=== PATIENT | female | born 1950 | race Two or more races ===

== ENCOUNTER → 2024-05-25 | Outpatient (CLI) | payer MEDICARE, MEDICAID, SELFPAY ==
[2024-05-25 10:45] LABS: Basophils # (Auto) 0.1 Thou/mm3 (0.0-0.2); Basophils % (Auto) 1 % (0-2.5); Eosinophils # (Auto) 0.2 Thou/mm3 (0.0-0.5); Eosinophils % (Auto) 3 % (0-10); Hematocrit 41.9 % (36.0-46.0); Immature Granulocytes % (Auto) 1 % (0-0); Immature Granulocytes Auto 0.04 Thou/mm3 (0.00-0.00); Lymphocytes # (Auto) 2.2 Thou/mm3 (1.0-4.8); Lymphocytes % (Auto) 31 % (10-50); Mean Corpuscular HGB Conc 33.4 g/dl (31.0-37.0); Mean Corpuscular Hemoglobin 29.8 pg (25.0-35.0); Mean Corpuscular Volume 89 fL (80-100); Monocytes # (Auto) 0.6 Thou/mm3 (0.0-0.8); Monocytes % (Auto) 8 % (0-12); Neutrophils # (Auto) 4.1 Thou/mm3 (1.8-7.7); Neutrophils % (Auto) 57 % (37-80); Nucleated Red Blood Cell % 0 /100 WBC (0); Platelet Count 218 Thou/mm3 (140-440); RDW Standard Deviation 41.9 fL (36.4-46.3); White Blood Count 7.3 Thou/mm3 (3.6-11.0)
[2024-05-25 11:11] LABS: Alanine Aminotransferase 16 U/L (10-49); Albumin, Serum 4.4 gm/dL (3.4-4.8); Albumin/Globulin Ratio 1.6 (1.2-2.2); Alkaline Phosphatase 63 U/L (46-116); Anion Gap 8 (7-16); Aspartate Amino Transferase 15 U/L (0-34); BUN/Creatinine Ratio 20 Ratio (12-20); Bilirubin,Total 0.4 mg/dL (0.3-1.2); Blood Urea Nitrogen 16 mg/dL (9-23); Calcium 9.3 mg/dL (8.3-10.6); Calcium (Corrected) 9.3 mg/dL (8.5-10.1); Carbon Dioxide 25.4 mMol/L (20.0-31.0); Chloride 108 mMol/L (98-107); Creatinine (Component) 0.8 mg/dL (0.6-1.3); Globulin 2.8 gm/dL (2.3-3.5); Glucose 104 mg/dL (74-106); Osmolality,Calculated 282 (275-295); Potassium 3.8 mMol/L (3.4-5.1); Sodium 141 mMol/L (136-145); Total Protein 7.2 gm/dL (5.7-8.2); eGFR > 60 See Note
== END | disposition home or self-care (01) ==
PROVIDERS: PCP Family Medicine; Referring Provider Internal Medicine Hematology & Oncology; Visit Provider Internal Medicine Hematology & Oncology
DX: C50.311 Malignant neoplasm of lower-inner quadrant of right female breast (principal)
CPT/HCPCS: 36415; 80053; 85025

== ENCOUNTER 2024-06-01 13:51 | Outpatient (RCR) | payer MEDICARE, MEDICAID, SELFPAY ==
--- NOTE | 2024-06-04 19:56 | CTCFLWUP_ITS ---
Patient: CECILIO SRINIVASAN : 1950 Page 2 of 3 FOLLOW UP NOTE DATE OF [id number]/01/2024 NAME: CECILIO SRINIVASAN ACCOUNT: [id number] : 1950 AGE: 73 DIAGNOSIS: Stage IIa (PT 2, N0 SN), intermediate grade, ER positive, MA positive, HER-2/sophie negative invasive ductal carcinoma of the right breast (10/07/2018). Oncotype DX recurrence score 17 (low risk group) Anastrozole started on 02/10/2019. Anastrozole discontinued on 01/07/2021 due to osteoporosis. Linda evans is started on tamoxifen. Osteoporosis on bone density test (01/07/2021) She is also started on Prolia (01/20/2021) REASON FOR TODAY?S VISIT: This is office follow-up visit. Ms. Srinivasan is here at [facility]. She is clinically doing very well. Currently she is on tamoxifen. Toleratin g it very well without any significant side effects. She denies any cough, chest pain, abdominal kelly n or leg cramps. She is also taking Citracal 1 tablet p.o. twice daily. Her last bone density test was done on 01/07/2021. Ms. Srinivasan is currently on Prolia also. HISTORY OF PRESENT ILLNESS: Cecilio Srinivasan is a 73-year-old SPA speaking female with followin g oncology history. 06/28/2018: Patient had right breast unilateral ultrasound for complaint of palpable right breast mas s. Ultrasound showed a 3 x 2.6 cm nodule at 12 o'clock position and the second 2.5 x 2.3 cm nodule a t the 5 o'clock position. 06/28/2018: Patient had bilateral diagnostic digital mammograms which confirmed a 3.3 cm oval mass in the retroareolar right breast with indistinct margins. 06/28/2018: Bone density test was done which showed normal mineralization based on the lumbar spine m easurements and osteopenia based on hip measurements. 07/27/2018: Patient had a right breast ultrasound-guided biopsy. Pathology showed ER positive, MA nega tive, HER-2/sophie negative intermediate grade invasive ductal carcinoma. 10/07/2018: Patient had right breast partial mastectomy and sentinel lymph node biopsy. Surgical path ology specimen showed single focus intermediate grade ER positive MA positive and HER-2/sophie negative invasive ductal carcinoma. Deep additional surgical margin was positive for lymphovascular invasion. Surgical margins are negative on mastectomy specimen. One sentinel lymph node was negative for mal ignancy. Oncotype DX recurrence score result is 17 placing Ms. Srinivasan in low risk group. 11/01/2018?02/09/2019: Patient received 6600 cGy radiation to the right breast. 02/10/2019: Patient started anastrozole. 07/25/2019: CT scan of the chest abdomen pelvis with contrast?negative for metastatic disease. 01/07/2021: Bone density test 01/07/2021: Anastrozole discontinued and patient is started on tamoxifen and Prolia and Citracal. 05/30/2021: Ultrasound-guided biopsy of the right breast lesion. PAST MEDICAL HISTORY: Hypertension. Anxiety. PAST MEDICAL HISTORY: Hypertension. Anxiety. PAST SURGICAL HISTORY: MEDICATIONS: 1. Citracal plus D - 315 mg-5 mcg (200 unit) 1 tab Twice a Day 2. clonazepam - 1 mg As directed 3. FLUoxetine - 10 mg 1 tab As directed 4. losartan - 100 mg 1 tab Daily 5. tamoxifen - 20 mg 1 tab Daily 6. tamoxifen - 20 mg 1 tab one tab po q daily Medications Last Reconciled by Jodi Mauro MA on 12/02/2023 ALLERGIES: PENICILLAMINE REVIEW OF SYSTEMS: Neurological: No headache, seizures or blurring of vision. Gastrointestinal: No nausea, vomiting, diarrhea or constipation. Cardiovascular: No palpitations or angina pains. Respiratory: No cough, chest pain or shortness of breath. PHYSICAL EXAMINATION: VITAL SIGNS: This is a telemedicine visit. Patient is not examined. LABORATORY DATA: Date Time ASSESSMENT: 1.Stage IIa, intermediate grade, ER positive, MA positive, HER-2/sophie negative invasive ductal carcino ma of the right breast (10/07/2018). Lymphovascular invasion present. Status post right breast parti al mastectomy and sentinel lymph node biopsy. Status post radiation therapy to the right breast. Oncotype DX recurrence score is 17 placing Ms. Srinivasan in low risk group. Absolute chemotherapy cedric efit is less than 1%. Her distant recurrence risk at 9 years with either aromatase inhibitors or anderson oxifen is around 5%. The patient is clinically doing well without any complaints.. She is currently on tamoxifen and tolerating it very well without any side effects. Osteoporosis (01/07/2021) on Prolia and Citracal 1 tablet p.o. daily Anastrozole discontinued on 01/07/2021 due to osteoporosis and Ms. Srinivasan was started on tamoxifen. 2High blood pressure- follow with pcp 3Anxiety follow with pcp PLAN: Mammogram nika Continue tamoxifen. New prescription sent to the pharmacy Continue Prolia as per the treatment plan Citracal to 1 tablet p.o. twice daily. Last mammogram normal as per patient Rtc in 3- 6 months as per patient preference . Electronically Signed by: {Object.Sanct_ID*PnP.NameFL@M}, {Object.Sanct_ID*PnP.Suffix@U} D: {Object.Sanct_Date} T: {Object.Sanct_Time} CC: Olivia?Vanessa,? PCP: Jose Harley Referring: Jose Harley This document was completed utilizing speech recognition software. Grammatical errors, random word in sertions, pronoun errors, and incomplete sentences are an occasional consequence of this system due t o software limitations, ambient noise, and hardware issues. Any formal questions or concerns about th e content, text or information contained within the body of this dictation should be directly address ed to the provider for clarification.
== END 2024-06-17 23:59 | disposition home or self-care (01) ==
LOC: SCTC 13:51
PROVIDERS: PCP Family Medicine; Referring Provider Family Medicine; Visit Provider Internal Medicine Hematology & Oncology
DX: C50.311 Malignant neoplasm of lower-inner quadrant of right female breast (principal); Z17.0 Estrogen receptor positive status [ER+]; Z17.21 Progesterone receptor positive status; Z17.32 Human epidermal growth factor receptor 2 negative status; Z79.810 Long term (current) use of selective estrogen receptor modulators (SERMs); M81.0 Age-related osteoporosis without current pathological fracture; Z90.11 Acquired absence of right breast and nipple
CPT/HCPCS: 99213; G0463

== ENCOUNTER → 2024-07-07 | Outpatient (CLI) | payer MEDICARE, MEDICAID, SELFPAY ==
--- NOTE | 2024-07-07 11:45 | XR_ITS ---
Examination: Screening digital mammography, bilateral Computer aided detection 3-D breast Tomosynthesis, bilateral Date and time of exam: July 07, 2024 1201 hours Compared to mammograms dating to June 28, 2008 Indication: Screening Technique: Nonmagnified MLO, CC views of the breasts to been obtained, reconstructed from 3-D Tomosynthesis images. R2 computer aided detection program utilized for evaluation of suspicious masses and/or abnormal calcifications. 3-D Tomosynthesis images obtained. Findings: The breasts are heterogeneously dense, which may obscure small masses Mass in the inner right breast with breast biopsy marker again noted This mass biopsy May 30, 2021 No additional masses Benign calcifications IMPRESSION: BI-RADS Category 0: Incomplete: Need additional imaging evaluation Recommend repeat right breast sonography to document stability of the 1:00 nodule right breast compared to the right breast sonogram July 16, 2021
== END | disposition home or self-care (01) ==
LOC: CDIM 11:42
PROVIDERS: Referring Provider Internal Medicine Hematology & Oncology; Visit Provider Internal Medicine Hematology & Oncology
DX: Z12.31 Encounter for screening mammogram for malignant neoplasm of breast (principal); C50.311 Malignant neoplasm of lower-inner quadrant of right female breast; N63.12 Unspecified lump in the right breast, upper inner quadrant; R92.8 Other abnormal and inconclusive findings on diagnostic imaging of breast
CPT/HCPCS: 77063; 77067

== ENCOUNTER → 2024-07-24 | Outpatient (CLI) | payer MEDICARE, MEDICAID, SELFPAY ==
--- NOTE | 2024-07-24 13:40 | XR_ITS ---
Examination: Bone densitometry Date and time of exam:July 24, 2024 1352 hours INDICATIONS: Menopause age 57, personal history osteopenia Technique: Lumbar spine and hip total bone mineralization values of an calculated. Peak reference and age match control results have been displayed. Findings: Lumbar spine total bone mineralization is1.126 gm/cm2. This is 0.7 standard deviations above peak reference. This is 2.9 standard deviations above age-matched controls. Hip total bone mineralization is 0.844 gm/cm2 This is 0.9 standard deviations below peak reference. This is 0.7 standard deviations above age-matched controls Impression: There is normal mineralization based on lumbar spine measurements. There is osteoporosis based on hip measurements Lumbar mineralization is increase 14.8% compared with January 07, 2021 Hip mineralization is increase 11.0% compared with January 07, 2021
[2024-07-24 14:29] LABS: Basophils # (Auto) 0.1 Thou/mm3 (0.0-0.2); Basophils % (Auto) 1 % (0-2.5); Eosinophils # (Auto) 0.2 Thou/mm3 (0.0-0.5); Eosinophils % (Auto) 4 % (0-10); Hematocrit 43.4 % (36.0-46.0); Hemoglobin 14.4 g/dL (12.0-16.0); Immature Granulocytes % (Auto) 0 % (0-0); Immature Granulocytes Auto 0.02 Thou/mm3 (0.00-0.00); Lymphocytes # (Auto) 1.8 Thou/mm3 (1.0-4.8); Lymphocytes % (Auto) 26 % (10-50); Mean Corpuscular HGB Conc 33.2 g/dl (31.0-37.0); Mean Corpuscular Hemoglobin 29.5 pg (25.0-35.0); Mean Corpuscular Volume 89 fL (80-100); Monocytes # (Auto) 0.5 Thou/mm3 (0.0-0.8); Monocytes % (Auto) 7 % (0-12); Neutrophils # (Auto) 4.3 Thou/mm3 (1.8-7.7); Neutrophils % (Auto) 63 % (37-80); Nucleated Red Blood Cell % 0 /100 WBC (0); Platelet Count 200 Thou/mm3 (140-440); RDW Standard Deviation 39.9 fL (36.4-46.3); Red Blood Count 4.88 Miln/mm3 (4.00-5.20); White Blood Count 6.9 Thou/mm3 (3.6-11.0)
[2024-07-24 15:11] LABS: Alanine Aminotransferase 10 U/L (10-49); Albumin, Serum 4.5 gm/dL (3.4-4.8); Albumin/Globulin Ratio 1.6 (1.2-2.2); Alkaline Phosphatase 55 U/L (46-116); Anion Gap 12 (7-16); Aspartate Amino Transferase 14 U/L (0-34); BUN/Creatinine Ratio 15 Ratio (12-20); Bilirubin,Total 0.6 mg/dL (0.3-1.2); Blood Urea Nitrogen 12 mg/dL (9-23); Calcium 9.1 mg/dL (8.3-10.6); Calcium (Corrected) 9.1 mg/dL (8.5-10.1); Chloride 106 mMol/L (98-107); Creatinine (Component) 0.8 mg/dL (0.6-1.3); Globulin 2.8 gm/dL (2.3-3.5); Glucose 95 mg/dL (74-106); Osmolality,Calculated 282 (275-295); Potassium 3.9 mMol/L (3.4-5.1); Sodium 142 mMol/L (136-145); Total Protein 7.3 gm/dL (5.7-8.2); eGFR > 60 See Note
[2024-07-25 17:42] LABS: CA 15-3 7.6 U/mL (<32.4)
== END | disposition home or self-care (01) ==
LOC: CDIM 13:41 → COPL 13:53
PROVIDERS: PCP Family Medicine; Referring Provider Internal Medicine Hematology & Oncology; Visit Provider Radiology Diagnostic Radiology
DX: M81.8 Other osteoporosis without current pathological fracture (principal); C50.311 Malignant neoplasm of lower-inner quadrant of right female breast
CPT/HCPCS: 36415; 77080; 80053; 85025; 86300

== ENCOUNTER → 2024-08-01 | Outpatient (CLI) | payer MEDICARE, MEDICAID, SELFPAY ==
--- NOTE | 2024-08-01 11:30 | XR_ITS ---
Examination: Breast ultrasound, unilateral, right complete Date and time of exam: August 01, 2026 1123 hours INDICATIONS: Right breast sonogram May 16, 2021 1:00 nodule 3.3 x 1.2 x 2.7 cm indistinct margins, biopsy May 30, 2021 negative for malignancy Technique: Real-time teague scale ultrasonographic imaging performed right breast including all 4 quadrants as well as nipple retroareolar and axillary region. Findings: 1:00 oval mass circumscribed 3.0 x 1.2 x 2.6 cm IMPRESSION: BI-RADS Category 3: Probably benign findings One additional 6 month right breast sonogram follow-up is needed to document stability of nodule described above
== END | disposition home or self-care (01) ==
PROVIDERS: PCP Family Medicine; Referring Provider Internal Medicine Hematology & Oncology; Visit Provider Internal Medicine Hematology & Oncology
DX: N63.12 Unspecified lump in the right breast, upper inner quadrant (principal); C50.311 Malignant neoplasm of lower-inner quadrant of right female breast
CPT/HCPCS: 76641

== ENCOUNTER → 2024-09-22 | Outpatient (CLI) | payer MEDICARE, MEDICAID, SELFPAY ==
[2024-09-22 15:05] LABS: Anion Gap 10 (7-16); BUN/Creatinine Ratio 21 Ratio (12-20); Blood Urea Nitrogen 17 mg/dL (9-23); Calcium 9.2 mg/dL (8.3-10.6); Carbon Dioxide 24.8 mMol/L (20.0-31.0); Chloride 108 mMol/L (98-107); Creatinine (Component) 0.8 mg/dL (0.6-1.3); Glucose 140 mg/dL (74-106); Osmolality,Calculated 288 (275-295); Potassium 3.9 mMol/L (3.4-5.1); Sodium 143 mMol/L (136-145); eGFR > 60 See Note
== END | disposition home or self-care (01) ==
LOC: SCTO 13:46
PROVIDERS: PCP Family Medicine; Referring Provider Internal Medicine Hematology & Oncology; Visit Provider Internal Medicine Hematology & Oncology
DX: C50.311 Malignant neoplasm of lower-inner quadrant of right female breast (principal)
CPT/HCPCS: 36415; 80048

== ENCOUNTER → 2024-10-16 | Outpatient (CLI) | payer MEDICARE, MEDICAID, SELFPAY ==
[2024-10-16 14:02] LABS: Basophils # (Auto) 0.1 Thou/mm3 (0.0-0.2); Basophils % (Auto) 1 % (0-2.5); Eosinophils # (Auto) 0.2 Thou/mm3 (0.0-0.5); Eosinophils % (Auto) 2 % (0-10); Hemoglobin 13.7 g/dL (12.0-16.0); Immature Granulocytes % (Auto) 0 % (0-0); Immature Granulocytes Auto 0.02 Thou/mm3 (0.00-0.00); Lymphocytes % (Auto) 27 % (10-50); Mean Corpuscular HGB Conc 32.6 g/dl (31.0-37.0); Mean Corpuscular Hemoglobin 29.3 pg (25.0-35.0); Mean Corpuscular Volume 90 fL (80-100); Monocytes # (Auto) 0.4 Thou/mm3 (0.0-0.8); Monocytes % (Auto) 6 % (0-12); Neutrophils # (Auto) 4.7 Thou/mm3 (1.8-7.7); Neutrophils % (Auto) 64 % (37-80); Nucleated Red Blood Cell % 0 /100 WBC (0); Platelet Count 191 Thou/mm3 (140-440); RDW Standard Deviation 40.8 fL (36.4-46.3); Red Blood Count 4.67 Miln/mm3 (4.00-5.20); White Blood Count 7.4 Thou/mm3 (3.6-11.0)
[2024-10-16 14:25] LABS: Alanine Aminotransferase 15 U/L (10-49); Albumin, Serum 4.1 gm/dL (3.4-4.8); Albumin/Globulin Ratio 1.5 (1.2-2.2); Alkaline Phosphatase 69 U/L (46-116); Anion Gap 13 (7-16); Aspartate Amino Transferase 23 U/L (0-34); BUN/Creatinine Ratio 27 Ratio (12-20); Bilirubin,Total 0.8 mg/dL (0.3-1.2); Blood Urea Nitrogen 19 mg/dL (9-23); Calcium 10.2 mg/dL (8.3-10.6); Calcium (Corrected) 10.2 mg/dL (8.5-10.1); Carbon Dioxide 23.4 mMol/L (20.0-31.0); Chloride 107 mMol/L (98-107); Creatinine (Component) 0.7 mg/dL (0.6-1.3); Globulin 2.8 gm/dL (2.3-3.5); Glucose 89 mg/dL (74-106); Osmolality,Calculated 286 (275-295); Potassium 4.1 mMol/L (3.4-5.1); Sodium 143 mMol/L (136-145); Total Protein 6.9 gm/dL (5.7-8.2); eGFR > 60 See Note
[2024-10-16 14:40] LABS: CA 15-3 5.9 U/mL (<32.4)
== END | disposition home or self-care (01) ==
LOC: SCTO 13:28
PROVIDERS: PCP Family Medicine; Referring Provider Internal Medicine Hematology & Oncology; Visit Provider Internal Medicine Hematology & Oncology
DX: C50.311 Malignant neoplasm of lower-inner quadrant of right female breast (principal)
CPT/HCPCS: 36415; 80053; 85025; 86300

== ENCOUNTER 2024-10-19 13:16 | Outpatient (RCR) | payer MEDICARE, MEDICAID, SELFPAY ==
--- NOTE | 2024-11-06 19:56 | CTCFLWUP_ITS ---
Patient: CECILIO SANCHEZ : 1950 Page 2 of 5 FOLLOW UP NOTE DATE OF SERVICE: 10/18/2024 NAME: CECILIO SANCHEZ ACCOUNT: [id number] : 1950 AGE: 74 INTERVAL HISTORY: No new complains ONCOLOGY HISTORY: DIAGNOSIS: Stage IIa (PT 2, N0 SN), intermediate grade, ER positive, CT positive, HER-2/sophie negative invasive ductal carcinoma of the right breast (10/07/2018). Oncotype DX recurrence score 17 (low risk group) Anastrozole started on 02/10/2019. Anastrozole discontinued on 01/07/2021 due to osteoporosis. Patient is started on tamoxifen. Osteoporosis on bone density test (01/07/2021) She is also started on Prolia (01/20/2021) REASON FOR TODAY?S VISIT: This is office follow-up visit. Ms. Sanchez is here at [facility]. She is clinically doing very well. Currently she is on tamoxifen. Tolerating it very well without any significant side effects. She denies any cough, chest pain, abdominal pain or leg cramps. She is also taking Citracal 1 tablet p.o. twice daily. Her last bone density test was done on 01/07/2021. Ms. Sanchez is currently on Prolia also. Malignant neoplasm of lower-inner quadrant of right female breast [ICD10] C50.311 DATE OF DIAGNOSIS: STAGE/TNM: TREATMENT HISTORY: Care?Plan Start?Date Cycle Day Intent DOCEtaxel?75,?Cyclophosphamide?600 11/17/2018 1 21 Curative?(adjuvant) PROLia?60mg?every?6?months 01/30/2021 1 180 Palliative HISTORY OF PRESENT ILLNESS: Cecilio Sanchez is a 74-year-old SPA speaking female with following oncology history. 06/28/2018: Patient had right breast unilateral ultrasound for complaint of palpable right breast mass. Ultrasound showed a 3 x 2.6 cm nodule at 12 o'clock position and the second 2.5 x 2.3 cm nodule at the 5 o'clock position. 06/28/2018: Patient had bilateral diagnostic digital mammograms which confirmed a 3.3 cm oval mass in the retroareolar right breast with indistinct margins. 06/28/2018: Bone density test was done which showed normal mineralization based on the lumbar spine measurements and osteopenia based on hip measurements. 07/27/2018: Patient had a right breast ultrasound-guided biopsy. Pathology showed ER positive, CT negative, HER-2/sophie negative intermediate grade invasive ductal carcinoma. 10/07/2018: Patient had right breast partial mastectomy and sentinel lymph node biopsy. Surgical pathology specimen showed single focus intermediate grade ER positive CT positive and HER-2/sophie negative invasive ductal carcinoma. Deep additional surgical margin was positive for lymphovascular invasion. Surgical margins are negative on mastectomy specimen. One sentinel lymph node was negative for malignancy. Oncotype DX recurrence score result is 17 placing Ms. Sanchez in low risk group. 11/01/2018?02/09/2019: Patient received 6600 cGy radiation to the right breast. 02/10/2019: Patient started anastrozole. 07/25/2019: CT scan of the chest abdomen pelvis with contrast?negative for metastatic disease. 01/07/2021: Bone density test 01/07/2021: Anastrozole discontinued and patient is started on tamoxifen and Prolia and Citracal. 05/30/2021: Ultrasound-guided biopsy of the right breast lesion. PAST MEDICAL HISTORY: Hypertension. Anxiety. OTHER MEDICAL HISTORY/CONDITIONS: FAMILY HISTORY: SOCIAL HISTORY: DIAL MOUNTER HISTORY: MEDICATIONS: 1. Citracal plus D - 315 mg-5 mcg (200 unit) 1 tab Twice a Day 2. clonazepam - 1 mg As directed 3. FLUoxetine - 10 mg 1 tab As directed 4. losartan - 100 mg 1 tab Daily 5. tamoxifen - 20 mg 1 tab one tab po q daily Medications Last Reconciled by Cecilio Myers MD on 10/18/2024 ALLERGIES: PENICILLAMINE REVIEW OF SYSTEMS: A complete 14-point review of systems was performed and is negative except as noted in interval history. PHYSICAL EXAMINATION: VITAL SIGNS: Temperature?98.6, B/P?168/76, Oxygen?Saturation?97% Weight?156.4?lbs PAIN: 3 - Between mild and moderate pain ECOG Performance Status: None This is a telemedicine visit. Patient is not examined. LABORATORY DATA: I have personally reviewed and interpreted each of the patient?s relevant lab tests, abnormal findings are below: Date 1/6/25 3/7/25 3/31/25 ??WHITE?BLOOD?COUNT?(Thou/mm3) ? ? 7.4 ??RED?BLOOD?COUNT?(Miln/mm3) ? ? 4.67 ??HEMOGLOBIN?(gm/dl) ? ? 13.7 ??HEMATOCRIT?(%) ? ? 42.0 ??PLATELET?COUNT?(Thou/mm3) ? ? 191 ??NEUTROPHILS?%,?AUTO?(%) ? ? 64 ??LYMPH?%,?AUTO?(%) ? ? 27 ??NEUTROPHILS,?AUTO?(Thou/mm3) ? ? 4.7 ??GLUCOSE,RANDOM?(mg/dL) 95 140?H 89 ??BLOOD?UREA?NITROGEN?(mg/dL) 12 17 19 ??CREATININE?(mg/dL) 0.80 0.80 0.70 ??SODIUM?(mmol/L) 142 143 143 ??POTASSIUM?(mmol/L) 3.9 3.9 4.1 ??CHLORIDE?(mmol/L) 106 108?H 107 ??CrCl?(CandG)?(ml/min) 60.86 59.98 68.55 ??AST/SGOT?(Unit/L) 14 ? 23 ??ALT/SGPT?(Unit/L) 10 ? 15 ??ALKALINE?PHOSPHATASE?(Unit/L) 55 ? 69 ??BILIRUBIN,?TOTAL?(mg/dL) 0.6 ? 0.8 ??PROTEIN?TOTAL?(gm/dl) 7.3 ? 6.9 ??ALBUMIN,?SERUM?(gm/dl) 4.5 ? 4.1 ??GLOBULIN?(gm/dl) 2.8 ? 2.8 ??ALBUMIN/GLOBULIN?RATIO 1.6 ? 1.5 ??CALCIUM,?SERUM?(mg/dL) 9.1 9.2 10.2 ??CALCIUM?SERUM?(CORRECTED)?(mg/dL) 9.1 ? 10.2?H ASSESSMENT/PLAN: 1.Stage IIa, intermediate grade, ER positive, CT positive, HER-2/sophie negative invasive ductal carcinoma of the right breast (10/07/2018). Lymphovascular invasion present. Status post right breast partial mastectomy and sentinel lymph node biopsy. Status post radiation therapy to the right breast. Oncotype DX recurrence score is 17 placing Ms. Sanchez in low risk group. Absolute chemotherapy benefit is less than 1%. Her distant recurrence risk at 9 years with either aromatase inhibitors or tamoxifen is around 5%. The patient is clinically doing well without any complaints.. She is currently on tamoxifen and tolerating it very well without any side effects. Osteoporosis (01/07/2021) on Prolia and Citracal 1 tablet p.o. daily Anastrozole discontinued on 01/07/2021 due to osteoporosis and Ms. Sanchez was started on tamoxifen. 2High blood pressure- follow with pcp 3Anxiety follow with pcp Mammogram nika Continue tamoxifen. New prescription sent to the pharmacy Continue Prolia as per the treatment plan Citracal to 1 tablet p.o. twice daily. Last mammogram normal as per patient Rtc in 3- 6 months as per patient preference . ORDERS: Order # Description [id number] Right + Breast Ultrasound [id number] Comprehensive Metabolic Panel - 12 + CBC with Auto Diff + CA 15-3 + CEA + MD Follow Up 6 Month [id number] MD Follow Up 4 Month [id number] Basic Metabolic Panel [id number] Basic Metabolic Panel [id number] Basic Metabolic Panel [id number] Basic Metabolic Panel [id number] Basic Metabolic Panel [id number] Basic Metabolic Panel [id number] Basic Metabolic Panel [id number] Basic Metabolic Panel [id number] Basic Metabolic Panel [id number] Basic Metabolic Panel [id number] Basic Metabolic Panel [id number] Basic Metabolic Panel [id number] Basic Metabolic Panel [id number] Basic Metabolic Panel RETURN TO CLINIC: BILLING AND COMPLIANCE: I reviewed external records from providers outside my specialty as summarized above. I spent a total of 50 minutes on this patient?s care on the day of their visit excluding time spent related to any billed procedures. This time includes time spent with the patient as well as time spent documenting in the medical record, reviewing patients records and tests, obtaining history, placing orders, communicating with other healthcare professionals, counseling the patient, family or caregiver, and/or care coordination for the diagnoses above. Electronically Signed by: {Object.Sanct_ID*PnP.NameFL@M}, {Object.Sanct_ID*PnP.Suffix@U} D: {Object.Sanct_Date} T: {Object.Sanct_Time} CC: Olivia?Vanessa? PCP: Ayleen Mata Referring: Ayleen Mata This document was completed utilizing speech recognition software. Grammatical errors, random word insertions, pronoun errors, and incomplete sentences are an occasional consequence of this system due to software limitations, ambient noise, and hardware issues. Any formal questions or concerns about the content, text or information contained within the body of this dictation should be directly addressed to the provider for clarification.
== END 2024-11-15 23:59 | disposition home or self-care (01) ==
LOC: SCTC 13:16
PROVIDERS: PCP Family Medicine; Referring Provider Family Medicine; Visit Provider Internal Medicine Hematology & Oncology
DX: C50.311 Malignant neoplasm of lower-inner quadrant of right female breast (principal); M81.0 Age-related osteoporosis without current pathological fracture; Z17.0 Estrogen receptor positive status [ER+]; Z17.21 Progesterone receptor positive status; Z17.32 Human epidermal growth factor receptor 2 negative status; Z79.810 Long term (current) use of selective estrogen receptor modulators (SERMs); Z90.11 Acquired absence of right breast and nipple
CPT/HCPCS: 96372; 99212; J0897; G0463

== ENCOUNTER → 2025-02-12 | Outpatient (CLI) | payer MEDICARE, MEDICAID, SELFPAY ==
[2025-02-12 13:46] LABS: Basophils # (Auto) 0.1 Thou/mm3 (0.0-0.2); Basophils % (Auto) 1 % (0-2.5); Eosinophils # (Auto) 0.2 Thou/mm3 (0.0-0.5); Eosinophils % (Auto) 3 % (0-10); Hematocrit 43.4 % (36.0-46.0); Hemoglobin 14.1 g/dL (12.0-16.0); Immature Granulocytes Auto 0.03 Thou/mm3 (0.00-0.00); Lymphocytes # (Auto) 1.8 Thou/mm3 (1.0-4.8); Lymphocytes % (Auto) 25 % (10-50); Mean Corpuscular HGB Conc 32.5 g/dl (31.0-37.0); Mean Corpuscular Hemoglobin 29.1 pg (25.0-35.0); Mean Corpuscular Volume 90 fL (80-100); Monocytes # (Auto) 0.5 Thou/mm3 (0.0-0.8); Monocytes % (Auto) 7 % (0-12); Neutrophils # (Auto) 4.6 Thou/mm3 (1.8-7.7); Neutrophils % (Auto) 65 % (37-80); Nucleated Red Blood Cell # 0.00 Thou/mm3 (0.00-0.00); Nucleated Red Blood Cell % 0 /100 WBC (0); Platelet Count 223 Thou/mm3 (140-440); RDW Standard Deviation 42.3 fL (36.4-46.3); Red Blood Count 4.84 Miln/mm3 (4.00-5.20); White Blood Count 7.1 Thou/mm3 (3.6-11.0)
[2025-02-12 13:58] LABS: Alanine Aminotransferase 11 U/L (10-49); Albumin, Serum 4.6 gm/dL (3.4-4.8); Albumin/Globulin Ratio 1.6 (1.2-2.2); Alkaline Phosphatase 67 U/L (46-116); Anion Gap 13 (7-16); Aspartate Amino Transferase 18 U/L (0-34); BUN/Creatinine Ratio 19 Ratio (12-20); Bilirubin,Total 0.6 mg/dL (0.3-1.2); Blood Urea Nitrogen 15 mg/dL (9-23); Calcium 9.8 mg/dL (8.3-10.6); Calcium (Corrected) 9.8 mg/dL (8.5-10.1); Carbon Dioxide 26.4 mMol/L (20.0-31.0); Chloride 107 mMol/L (98-107); Creatinine (Component) 0.8 mg/dL (0.6-1.3); Globulin 2.9 gm/dL (2.3-3.5); Glucose 101 mg/dL (74-106); Osmolality,Calculated 291 (275-295); Potassium 3.8 mMol/L (3.4-5.1); Sodium 146 mMol/L (136-145); Total Protein 7.5 gm/dL (5.7-8.2); eGFR > 60 See Note
[2025-02-12 14:28] LABS: CA 15-3 5.4 U/mL (<32.4); Carcinoembryonic Antigen < 0.5 ng/mL (0.0-5.0)
== END | disposition home or self-care (01) ==
LOC: SCTO 12:56
PROVIDERS: PCP Family Medicine; Referring Provider Internal Medicine Hematology & Oncology; Visit Provider Internal Medicine Hematology & Oncology
DX: C50.311 Malignant neoplasm of lower-inner quadrant of right female breast (principal)
CPT/HCPCS: 36415; 80053; 82378; 85025; 86300

== ENCOUNTER 2025-02-14 12:58 | Outpatient (RCR) | payer MEDICARE, MEDICAID, SELFPAY ==
--- NOTE | 2025-02-25 22:23 | CTCFLWUP_ITS ---
Patient: CECILIO SANCHEZ : 1950 Page 2 of 3 FOLLOW UP NOTE DATE OF SERVICE: 02/14/2025 NAME: CECILIO SANCHEZ ACCOUNT: [id number] : 1950 AGE: 74 INTERVAL HISTORY: No new complains ONCOLOGY HISTORY: DIAGNOSIS: Stage IIa (PT 2, N0 SN), intermediate grade, ER positive, GA positive, HER-2/sophie negative invasive ductal carcinoma of the right breast (10/07/2018). Oncotype DX recurrence score 17 (low risk group) Anastrozole started on 02/10/2019. Anastrozole discontinued on 01/07/2021 due to osteoporosis. Patient is started on tamoxifen. Osteoporosis on bone density test (01/07/2021) She is also started on Prolia (01/20/2021) REASON FOR TODAY?S VISIT: This is office follow-up visit. Ms. Sanchez is here at [facility]. She is clinically doing very well. Currently she is on tamoxifen. Tolerating it very well without any significant side effects. She denies any cough, chest pain, abdominal pain or leg cramps. She is also taking Citracal 1 tablet p.o. twice daily. Her last bone density test was done on 01/07/2021. Ms. Sanchez is currently on Prolia also. Malignant neoplasm of lower-inner quadrant of right female breast [ICD10] C50.311 DATE OF DIAGNOSIS: 10/07/2018 STAGE/TNM: Stage IIa ER/GA positive HER2 negative invasive ductal carcinoma of the right breast TREATMENT HISTORY: Care?Plan Start?Date Cycle Day Intent DOCEtaxel?75,?Cyclophosphamide?600 11/17/2018 1 21 Curative?(adjuvant) PROLia?60mg?every?6?months 01/30/2021 1 180 Palliative HISTORY OF PRESENT ILLNESS: Cecilio Sanchez is a 74-year-old S[place] speaking female with following oncology history. 06/28/2018: Patient had right breast unilateral ultrasound for complaint of palpable right breast mass. Ultrasound showed a 3 x 2.6 cm nodule at 12 o'clock position and the second 2.5 x 2.3 cm nodule at the 5 o'clock position. 06/28/2018: Patient had bilateral diagnostic digital mammograms which confirmed a 3.3 cm oval mass in the retroareolar right breast with indistinct margins. 06/28/2018: Bone density test was done which showed normal mineralization based on the lumbar spine measurements and osteopenia based on hip measurements. 07/27/2018: Patient had a right breast ultrasound-guided biopsy. Pathology showed ER positive, GA negative, HER-2/sophie negative intermediate grade invasive ductal carcinoma. 10/07/2018: Patient had right breast partial mastectomy and sentinel lymph node biopsy. Surgical pathology specimen showed single focus intermediate grade ER positive GA positive and HER-2/sophie negative invasive ductal carcinoma. Deep additional surgical margin was positive for lymphovascular invasion. Surgical margins are negative on mastectomy specimen. One sentinel lymph node was negative for malignancy. Oncotype DX recurrence score result is 17 placing Ms. Sanchez in low risk group. 11/01/2018?02/09/2019: Patient received 6600 cGy radiation to the right breast. 02/10/2019: Patient started anastrozole. 07/25/2019: CT scan of the chest abdomen pelvis with contrast?negative for metastatic disease. 01/07/2021: Bone density test 01/07/2021: Anastrozole discontinued and patient is started on tamoxifen and Prolia and Citracal. 05/30/2021: Ultrasound-guided biopsy of the right breast lesion. PAST MEDICAL HISTORY: Hypertension. Anxiety. 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 Citracal plus D - 315 mg-5 mcg (200 unit) 1 tab Twice a Day 2. clonazepam - 1 mg As directed 3. FLUoxetine - 10 mg 1 tab As directed 4. losartan - 100 mg 1 tab Daily 5. tamoxifen - 20 mg 1 tab one tab po q daily Medications Last Reconciled by Cecilio Myers MD on 02/14/2025 ALLERGIES: PENICILLAMINE REVIEW OF SYSTEMS: A complete 14-point review of systems was performed and is negative except as noted in interval history. PHYSICAL EXAMINATION: VITAL SIGNS: Temperature?97.3, B/P?168/75, Oxygen?Saturation?95% Weight?156?lbs PAIN: 0 - No pain This is a telemedicine visit. Patient is not examined. LABORATORY DATA: I have personally reviewed and interpreted each of the patient?s relevant lab tests, abnormal findings are below: Date 10/16/24 02/12/25 ??WHITE?BLOOD?COUNT?(Thou/mm3) ? 7.1 ??RED?BLOOD?COUNT?(Miln/mm3) ? 4.84 ??HEMOGLOBIN?(gm/dl) ? 14.1 ??HEMATOCRIT?(%) ? 43.4 ??PLATELET?COUNT?(Thou/mm3) ? 223 ??NEUTROPHILS?%,?AUTO?(%) ? 65 ??LYMPH?%,?AUTO?(%) ? 25 ??NEUTROPHILS,?AUTO?(Thou/mm3) ? 4.6 ??GLUCOSE,RANDOM?(mg/dL) 89 101 ??BLOOD?UREA?NITROGEN?(mg/dL) 19 15 ??CREATININE?(mg/dL) 0.70 0.80 ??SODIUM?(mmol/L) 143 146?H ??POTASSIUM?(mmol/L) 4.1 3.8 ??CHLORIDE?(mmol/L) 107 107 ??CrCl?(CandG)?(ml/min) 68.55 57.80 ??AST/SGOT?(Unit/L) 23 18 ??ALT/SGPT?(Unit/L) 15 11 ??ALKALINE?PHOSPHATASE?(Unit/L) 69 67 ??BILIRUBIN,?TOTAL?(mg/dL) 0.8 0.6 ??PROTEIN?TOTAL?(gm/dl) 6.9 7.5 ??ALBUMIN,?SERUM?(gm/dl) 4.1 4.6 ??GLOBULIN?(gm/dl) 2.8 2.9 ??ALBUMIN/GLOBULIN?RATIO 1.5 1.6 ??CALCIUM,?SERUM?(mg/dL) 10.2 9.8 ??CALCIUM?SERUM?(CORRECTED)?(mg/dL) 10.2?H 9.8 ??CEA?(O*)?(ng/ml) ? <?0.5 ASSESSMENT/PLAN: 1.Stage IIa, intermediate grade, ER positive, GA positive, HER-2/sophie negative invasive ductal carcinoma of the right breast (10/07/2018). Lymphovascular invasion present. Status post right breast partial mastectomy and sentinel lymph node biopsy. Status post radiation therapy to the right breast. Oncotype DX recurrence score is 17 placing Ms. Sanchez in low risk group. Absolute chemotherapy benefit is less than 1%. Her distant recurrence risk at 9 years with either aromatase inhibitors or tamoxifen is around 5%. The patient is clinically doing well without any complaints.. She is currently on tamoxifen and tolerating it very well without any side effects. Osteoporosis (01/07/2021) on Prolia and Citracal 1 tablet p.o. daily Anastrozole discontinued on 01/07/2021 due to osteoporosis and Ms. Sanchez was started on tamoxifen. 2High blood pressure- follow with pcp 3Anxiety follow with pcp Mammogram ordered for January 2025 Tolerated tamoxifen Continue Prolia as per the treatment plan Citracal to 1 tablet p.o. twice daily. Last mammogram normal as per patient Rtc in 3- 6 months as per patient preference . ORDERS: Order # Description [id number] Right + Breast Ultrasound [id number] Comprehensive Metabolic Panel - 12 + CBC with Auto Diff + CA 15-3 + CEA + MD Follow Up 6 Month [id number] MD Follow Up 4 Month [id number] Right + Breast Ultrasound [id number] MD Follow Up 3 Months RETURN TO CLINIC: I reviewed the diagnosis, prognosis, and recommended treatment/procedure options with the patient (and/or their legal field representative), including the potential benefits, risks, side effects and alternative therapies. We also discussed the option of no treatment and the possibility of clinical trial participation, if applicable. All questions were addressed, and they demonstrated understanding. They provided informed consent to proceed with the proposed plan of care. BILLING AND COMPLIANCE: I reviewed external records from providers outside my specialty as summarized above. I spent a total of 50 minutes on this patient?s care on the day of their visit excluding time spent related to any billed procedures. This time includes time spent with the patient as well as time spent documenting in the medical record, reviewing patients records and tests, obtaining history, placing orders, communicating with other healthcare professionals, counseling the patient, family or caregiver, and/or care coordination for the diagnoses above. Electronically Signed by: Krzysztof Mcdaniel MD T: 10:21 PM CC: Olivia?Vanessa? PCP: No Primary/family, Physician Referring: Krzysztof Mcdaniel This document was completed utilizing speech recognition software. Grammatical errors, random word insertions, pronoun errors, and incomplete sentences are an occasional consequence of this system due to software limitations, ambient noise, and hardware issues. Any formal questions or concerns about the content, text or information contained within the body of this dictation should be directly addressed to the provider for clarification.
== END 2025-02-15 23:59 | disposition home or self-care (01) ==
LOC: SCTC 12:58
PROVIDERS: Referring Provider Internal Medicine Hematology & Oncology; Visit Provider Internal Medicine Hematology & Oncology
DX: C50.311 Malignant neoplasm of lower-inner quadrant of right female breast (principal); Z17.0 Estrogen receptor positive status [ER+]; Z17.21 Progesterone receptor positive status; Z17.32 Human epidermal growth factor receptor 2 negative status; Z79.810 Long term (current) use of selective estrogen receptor modulators (SERMs)
CPT/HCPCS: 99212; G0463

== ENCOUNTER → 2025-04-23 | Outpatient (CLI) | payer MEDICARE, SELFPAY ==
[2025-04-23 11:37] LABS: Basophils # (Auto) 0.1 Thou/mm3 (0.0-0.2); Basophils % (Auto) 1 % (0-2.5); Eosinophils # (Auto) 0.3 Thou/mm3 (0.0-0.5); Eosinophils % (Auto) 4 % (0-10); Hematocrit 41.3 % (36.0-46.0); Hemoglobin 13.9 g/dL (12.0-16.0); Immature Granulocytes Auto 0.05 Thou/mm3 (0.00-0.00); Lymphocytes # (Auto) 1.7 Thou/mm3 (1.0-4.8); Lymphocytes % (Auto) 24 % (10-50); Mean Corpuscular HGB Conc 33.7 g/dl (31.0-37.0); Mean Corpuscular Hemoglobin 29.6 pg (25.0-35.0); Mean Corpuscular Volume 88 fL (80-100); Monocytes # (Auto) 0.5 Thou/mm3 (0.0-0.8); Monocytes % (Auto) 6 % (0-12); Neutrophils # (Auto) 4.7 Thou/mm3 (1.8-7.7); Neutrophils % (Auto) 64 % (37-80); Nucleated Red Blood Cell # 0.00 Thou/mm3 (0.00-0.00); Nucleated Red Blood Cell % 0 /100 WBC (0); Platelet Count 194 Thou/mm3 (140-440); RDW Standard Deviation 41.7 fL (36.4-46.3); Red Blood Count 4.69 Miln/mm3 (4.00-5.20); White Blood Count 7.3 Thou/mm3 (3.6-11.0)
[2025-04-23 12:03] LABS: Alanine Aminotransferase 10 U/L (10-49); Albumin, Serum 4.5 gm/dL (3.4-4.8); Albumin/Globulin Ratio 1.6 (1.2-2.2); Alkaline Phosphatase 72 U/L (46-116); Anion Gap 12 (7-16); Aspartate Amino Transferase < 8 U/L (0-34); BUN/Creatinine Ratio 16 Ratio (12-20); Bilirubin,Total 0.6 mg/dL (0.3-1.2); Blood Urea Nitrogen 13 mg/dL (9-23); Calcium 9.7 mg/dL (8.3-10.6); Calcium (Corrected) 9.7 mg/dL (8.5-10.1); Carbon Dioxide 26.2 mMol/L (20.0-31.0); Chloride 106 mMol/L (98-107); Creatinine (Component) 0.8 mg/dL (0.6-1.3); Globulin 2.9 gm/dL (2.3-3.5); Glucose 104 mg/dL (74-106); Osmolality,Calculated 286 (275-295); Potassium 3.5 mMol/L (3.4-5.1); Sodium 144 mMol/L (136-145); Total Protein 7.4 gm/dL (5.7-8.2); eGFR > 60 See Note
[2025-04-23 12:12] LABS: CA 15-3 4.8 U/mL (<32.4); Carcinoembryonic Antigen 0.6 ng/mL (0.0-5.0)
== END | disposition home or self-care (01) ==
PROVIDERS: PCP Family Medicine; Referring Provider Internal Medicine Hematology & Oncology; Visit Provider Internal Medicine Hematology & Oncology
DX: C50.311 Malignant neoplasm of lower-inner quadrant of right female breast (principal)
CPT/HCPCS: 36415; 80053; 82378; 85025; 86300